=== PATIENT | female | born 1995 | race Caucasian/White ===

== ENCOUNTER 2019-02-18 07:00 | Emergency (ER) | payer SELFPAY ==
[~2019-02-18] VITALS: Ht 154.9 cm; Wt 56.7 kg
[2019-02-18] MEDS ORDERED: IV NORMAL SALINE 1000ML BAG 1,000 ML IV SCH (07:18)
[2019-02-18 07:30] LABS: BASO # 0.1 x10^3/uL (0.0-0.2); BASO % 1 % (0-3); EOS # 0.1 x10^3/uL (0.0-0.7); EOS % 1 % (0-3); HEMATOCRIT 48.6 % (36.0-47.0); HEMOGLOBIN 16.4 g/dL (12.0-15.5); LYMPH % 35 % (24-48); MEAN CORPUSCULAR HEMOGLOBIN 31 pg (25-35); MEAN CORPUSCULAR HGB CONC 34 g/dL (31-37); MEAN CORPUSCULAR VOLUME 92 fL (79-100); MONO # 0.5 x10^3/uL (0.0-1.1); MONO % 6 % (0-9); NEUT # 4.9 x10^3uL (1.8-7.7); NEUT % 57 % (31-73); PLATELET COUNT 358 x10^3/uL (140-400); RED BLOOD COUNT 5.28 x10^6/uL (3.50-5.40); RED CELL DISTRIBUTION WIDTH 13.5 % (11.5-14.5); WHITE BLOOD COUNT 8.6 x10^3/uL (4.0-11.0)
[2019-02-18] MEDS ORDERED: KETOROLAC 30 MG/ML VIAL. IV ONE (07:30)
[2019-02-18 07:35] LABS: BILIRUBIN,URINE SMALL (NEG); CLARITY,URINE CLOUDY; NITRITE,URINE NEGATIVE (NEG); PH,URINE 5.5; PROTEIN,URINE NEGATIVE (NEG-TRACE)
[2019-02-18 07:43] LABS: CALCIUM 9.3 mg/dL (8.5-10.1); CREATININE 0.8 mg/dL (0.6-1.0); GFR 87.4; POTASSIUM 4.1 mmol/L (3.5-5.1)
--- NOTE | 2019-02-18 07:43 | PHYS DOC ---
Past Medical History Past Medical History: Hypertension Past Surgical History: Appendectomy Smoking: Cigarettes, Less than 1pk/day Alcohol Use: Heavy Drug Use: None Adult General Chief Complaint Chief Complaint: CHEST PAIN HPI HPI Patient is a 23 year old female who presents with complaining of chest pain. Patient complaining of constant left lower pressure chest pain for the last 5 days as a constant pain associated with shortness of breath, palpitation, nausea without radiation getting worse with movement and taking a deep breath. Patient states the pain started suddenly and was 5/10 that gradually getting worse to 10 over 10. Patient denies history of chest pain. Patient states she had history of hypertension and because of lack of insurance does not take any more Losartan. Patient states she usually drinks 6 pack of beer every day and had problem with using alcohol. Patient has history of smoking and denies using drugs. Patient has family history of coronary artery disease. Review of Systems Review of Systems Constitutional: Denies fever or chills [] Eyes: Denies change in visual acuity, redness, or eye pain [] HENT: Denies nasal congestion or sore throat [] Respiratory: Denies cough or shortness of breath [] Cardiovascular: No additional information not addressed in HPI [] GI: Denies abdominal pain, vomiting, bloody stools or diarrhea , reports nausea[] : Denies dysuria or hematuria [] Musculoskeletal: Denies back pain or joint pain [] Integument: Denies rash or skin lesions [] Neurologic: Denies headache, focal weakness or sensory changes [] Endocrine: Denies polyuria or polydipsia [] All other systems were reviewed and found to be within normal limits, except as documented in this note. Current Medications Current Medications Current Medications Medications (Trade) Dose Ordered Sig/Librado Start Time Stop Time Status Last Admin Dose Admin Famotidine (Pepcid Vial) 20 mg 1X ONCE 02/18/19 08:15 02/18/19 08:16 DC 02/18/19 08:12 20 MG Ketorolac Tromethamine (Toradol 30mg Vial) 30 mg 1X ONCE 02/18/19 07:30 02/18/19 07:31 DC 02/18/19 07:26 30 MG Sodium Chloride 1,000 ml @ 1,000 mls/hr Q1H 02/18/19 07:18 02/18/19 08:17 DC 02/18/19 07:26 1,000 MLS/HR Allergies Allergies Allergies Coded Allergies Type Severity Reaction Last Updated Verified No Known Drug Allergies 02/18/19 No Physical Exam Physical Exam Constitutional: Well developed, well nourished, mild distress, non-toxic appearance, smell of alcohol on breath. [] HENT: Normocephalic, atraumatic, oropharynx moist. Eyes: PERRLA, EOMI, conjunctiva normal, no discharge. [] Neck: Normal range of motion, no tenderness, supple, no stridor. [] Cardiovascular: Tachycardia, no murmur [] Lungs & Thorax: Bilateral breath sounds clear to auscultation, reproducible left lower chest wall pain [] Abdomen: Bowel sounds normal, soft, no tenderness, no masses, no pulsatile masses. [] Skin: Warm, dry, no erythema, no rash. [] Back: No tenderness, no CVA tenderness. [] Extremities: No tenderness, no cyanosis, no clubbing, ROM intact, no edema. [] Neurologic: Alert and oriented X 3, normal motor function, normal sensory functi on, no focal deficits noted. [] Psychologic: Affect anxious, judgement normal, mood normal. [] Current Patient Data Vital Signs Vital Signs Date Time Temp Pulse Resp B/P (MAP) Pulse Ox O2 Delivery O2 Flow Rate FiO2 02/18/19 08:41 86 10 131/83 (99) 98 Room Air 02/18/19 07:02 98.7 98.7 Lab Values Laboratory Tests Test 02/18/19 07:10 02/18/19 07:15 White Blood Count 8.6 x10^3/uL (4.0-11.0) Red Blood Count 5.28 x10^6/uL (3.50-5.40) Hemoglobin 16.4 g/dL (12.0-15.5) H Hematocrit 48.6 % (36.0-47.0) H Mean Corpuscular Volume 92 fL (79-100) Mean Corpuscular Hemoglobin 31 pg (25-35) Mean Corpuscular Hemoglobin Concent 34 g/dL (31-37) Red Cell Distribution Width 13.5 % (11.5-14.5) Platelet Count 358 x10^3/uL (140-400) Neutrophils (%) (Auto) 57 % (31-73) Lymphocytes (%) (Auto) 35 % (24-48) Monocytes (%) (Auto) 6 % (0-9) Eosinophils (%) (Auto) 1 % (0-3) Basophils (%) (Auto) 1 % (0-3) Neutrophils # (Auto) 4.9 x10^3uL (1.8-7.7) Lymphocytes # (Auto) 3.0 x10^3/uL (1.0-4.8) Monocytes # (Auto) 0.5 x10^3/uL (0.0-1.1) Eosinophils # (Auto) 0.1 x10^3/uL (0.0-0.7) Basophils # (Auto) 0.1 x10^3/uL (0.0-0.2) D-Dimer (Rosa) 0.33 ug/mlFEU (0.00-0.50) Sodium Level 141 mmol/L (136-145) Potassium Level 4.1 mmol/L (3.5-5.1) Chloride Level 102 mmol/L (98-107) Carbon Dioxide Level 27 mmol/L (21-32) Anion Gap 12 (6-14) Blood Urea Nitrogen 9 mg/dL (7-20) Creatinine 0.8 mg/dL (0.6-1.0) Estimated GFR (Cockcroft-Gault) 87.4 BUN/Creatinine Ratio 11 (6-20) Glucose Level 105 mg/dL (70-99) H Calcium Level 9.3 mg/dL (8.5-10.1) Magnesium Level 2.2 mg/dL (1.8-2.4) Total Bilirubin 0.5 mg/dL (0.2-1.0) Aspartate Amino Transferase (AST) 17 U/L (15-37) Alanine Aminotransferase (ALT) 16 U/L (14-59) Alkaline Phosphatase 98 U/L (46-116) Creatine Kinase 67 U/L (26-192) Troponin I Quantitative < 0.017 ng/mL (0.000-0.055) NM-Gdx-M-Type Natriuretic Peptide 13 pg/mL (0-124) Total Protein 7.5 g/dL (6.4-8.2) Albumin 4.0 g/dL (3.4-5.0) Albumin/Globulin Ratio 1.1 (1.0-1.7) Lipase 99 U/L (73-393) Ethyl Alcohol Level 130 mg/dL (0-10) H Urine Collection Type Void Urine Color Yellow Urine Clarity Cloudy Urine pH 5.5 Urine Specific [place] 1.025 Urine Protein Negative mg/dL (NEG-TRACE) Urine Glucose (UA) Negative mg/dL (NEG) Urine Ketones (Stick) Negative mg/dL (NEG) Urine Blood Negative (NEG) Urine Nitrite Negative (NEG) Urine Bilirubin Small (NEG) Urine Urobilinogen Dipstick 1.0 mg/dL (0.2 mg/dL) Urine Leukocyte Esterase Trace (NEG) Urine RBC Occ /HPF (0-2) Urine WBC 1-4 /HPF (0-4) Urine Squamous Epithelial Cells Many /LPF Urine Bacteria Many /HPF (0-FEW) Urine Mucus Marked /LPF Urine Opiates Screen Neg (NEG) Urine Methadone Screen Neg (NEG) Urine Barbiturates Neg (NEG) Urine Phencyclidine Screen Neg (NEG) Urine Amphetamine/Methamphetamine Neg (NEG) Urine Benzodiazepines Screen Neg (NEG) Urine Cocaine Screen Neg (NEG) Urine Cannabinoids Screen Pos (NEG) Urine Ethyl Alcohol Pos (NEG) Laboratory Tests 02/18/19 07:10 Laboratory Tests 02/18/19 07:10 EKG EKG EKG interpreted by me. EKG at 0710 showed sinus tachycardia at rate of 115, normal NM and QT interval force, left atrial abnormalities, no acute ST and T- wave abnormalities Radiology/Procedures Radiology/Procedures [facility] [address] [place] [address] IMAGING REPORT Signed PATIENT: RAEGAN REA ACCOUNT: [id number] : 1995 LOCATION: ER AGE: 23 SEX: F EXAM STATUS: REG ER ORD. PHYSICIAN: QUINTON SCHMITT MD REASON: chest pain PROCEDURE: CHEST PA & LATERAL EXAM: Chest, 2 views. HISTORY: Chest pain. COMPARISON: None. FINDINGS: 2 views of the chest are obtained. There is no infiltrate, pleural effusion or pneumothorax. The heart is normal in size. IMPRESSION: No acute pulmonary finding. Electronically signed by: Zulma Chase MD (02/18/2019 7:59 AM) [facility] DICTATED and SIGNED BY: ZULMA CHASE MD DATE: 02/18/19 0759 Course & Med Decision Making Course & Med Decision Making Pertinent Labs and Imaging studies reviewed. (See chart for details) Evaluation of patient in ER showed 23-year-old female patient with complaining of left-sided chest pain for 5 days and history of drinking a sixpack of beer every day. Patient had blood alcohol of 130 with tachycardia and reproducible left-sided chest pain. Patient had unremarkable labs throat oral and IV fluid and Pepcid. Plan to discharge patient home with diagnosis of musculoskeletal chest pain. Dragon Disclaimer Dragon Disclaimer This electronic medical record was generated, in whole or in part, using a voice recognition dictation system. Departure Departure Impression: Primary Impression: Musculoskeletal chest pain Additional Impressions: Alcohol abuse Anxiety Tobacco abuse Tobacco abuse counseling Disposition: HOME, SELF-CARE (At 0840) Condition: IMPROVED Patient Instructions: Alcohol Problems, Chest Wall Pain, Smoking Cessation, Tips For Success Additional Instructions: Drink plenty of liquids Apply ice on the affected area Follow-up with your primary care physician in 3-5 days Return to ER if not getting better Scripts Naproxen (NAPROSYN) 500 Mg Tablet 1 TAB PO BID for pain, #20 TAB Prov: QUINTON SCHMITT MD 02/18/19 Cyclobenzaprine Hcl (CYCLOBENZAPRINE HCL) 10 Mg Tablet 1 TAB PO TID for muscle pain, #30 TAB Prov: QUINTON SCHMITT MD 02/18/19 Problem Qualifiers QUINTON SCHMITT MD February 18, 2019 07:43
[2019-02-18 07:47] LABS: BACTERIA,URINE MANY /HPF (0-FEW); COLOR,URINE YELLOW; SQUAMOUS EPITHELIAL CELL,UR MANY /LPF
[2019-02-18 07:48] LABS: BARBITURATES NEG (NEG); BENZODIAZEPINES NEG (NEG); CANNABINOIDS POS (NEG); COCAINE NEG (NEG); METHADONE NEG (NEG); OPIATES NEG (NEG); PHENCYCLIDINE NEG (NEG); RBC,URINE OCC /HPF (0-2)
[2019-02-18 07:48] LABS: ALBUMIN/GLOBULIN RATIO 1.1 (1.0-1.7); MAGNESIUM 2.2 mg/dL (1.8-2.4); TOTAL BILIRUBIN 0.5 mg/dL (0.2-1.0); TOTAL PROTEIN 7.5 g/dL (6.4-8.2)
[2019-02-18 07:51] LABS: AMPHETAMINE/METHAMPHETAMINE NEG (NEG)
--- NOTE | 2019-02-18 08:02 | RAD ---
EXAM: Chest, 2 views. HISTORY: Chest pain. COMPARISON: None. FINDINGS: 2 views of the chest are obtained. There is no infiltrate, pleural effusion or pneumothorax. The heart is normal in size. IMPRESSION: No acute pulmonary finding. Electronically signed by: Zulma Chase MD (02/18/2019 7:59 AM) [facility]
[2019-02-18] MEDS ORDERED: FAMOTIDINE 20 MG/2 ML VIAL IVP ONE (08:15)
--- NOTE | 2019-02-18 08:26 | EKG ---
[facility] [address] [place] [address] Test Date: 2019-02-18 Test Time: 07:10:33 Pat Name: RAEGAN REA Department: Room: Gender: F Spin Instructor: : 1995 Requested By: QUINTON SCHMITT Order Number: [id number] Reading MD: Bob Negrete MD Measurements Intervals [place] Rate: 115 P: 57 WV: 108 QRS: 78 QRSD: 80 T: 22 QT: 316 QTc: 439 Interpretive Statements SINUS TACHYCARDIA NON-SPECIFIC ST/T CHANGES Electronically Signed On 02-21-2019 14:08:39 CDT by Bob Negrete MD
[2019-02-18 08:41] VITALS: BP 131/83
[2019-02-18] MEDS ORDERED: CYCL10TA2 PO (08:43)
[2019-02-18] MEDS ORDERED: NAPR-683 PO (08:43)
== END 2019-02-18 09:08 | disposition home or self-care (01) ==
LOC: ER 07:00
DX: R07.89 Other chest pain (principal); F41.9 Anxiety disorder, unspecified; R06.02 Shortness of breath; R00.2 Palpitations; R00.0 Tachycardia, unspecified; I10 Essential (primary) hypertension; F10.20 Alcohol dependence, uncomplicated; Y90.6 Blood alcohol level of 120-199 mg/100 ml; F17.210 Nicotine dependence, cigarettes, uncomplicated; Z90.89 Acquired absence of other organs; Z71.6 Tobacco abuse counseling
CPT/HCPCS: 36415; 71046; 80053; 80307; 81001; 82550; 83690; 83735; 83880; 84484; 85025; 85379; 87086; 93005; 96374; 96375; 99285; G0480; J1885; J3490; J7030